=== PATIENT | male | born 1990 | race African-American/Black ===

== ENCOUNTER 2025-07-14 00:51 | Observation (INO) | payer OTHER, SELFPAY ==
[2025-07-13 22:02] VITALS: BP 145/91; BMI 20.5
--- NOTE | 2025-07-13 22:25 | ED.GENMED ---
History of Present Illness
<Leigha Hutton PA-C - Last Filed: 07/14/25 01:12>
General
Chief Complaint: Chest Pain
Source: patient
Exam Limitations: none
Time Seen by Provider: 07/13/25 22:24
History of Present Illness
History of Present Illness:
35yoM with a prior history of substance use presenting from [facility] for evaluation of chest pain. Symptoms began around 5:30 PM after he ate dinner. He had a cheeseburger for dinner. He reports a sharp, throbbing pain in his left
chest which radiates to the back. Pain is worse with palpation and breathing. He denies any trauma to the chest. He is otherwise asymptomatic and denies any dizziness, syncope, shortness of breath, cough, fever, vomiting, abdominal pain.
Patient received aspirin prehospital. He saw a product safety associate as a teenager for palpitations and had a Holter monitor which was reportedly normal.
Phy Exam
<Leigha Hutton PA-C - Last Filed: 07/14/25 01:12>
General Physical Exam
General Presentation: well appearing and no apparent distress
General Skin: warm and dry
General Habitus: normal
General Mental: alert
ENT Exam
ENT Exam: normocephalic
Cardiovascular Exam
Cardiovascular Exam: regular rate/rhythm, no edema, no murmur and normal peripheral pulses (2+ radial pulses bilaterally)
Pulmonary Exam
Pulmonary Exam: lungs clear, no respiratory distress, no rales, no crackles, no rhonchi, no wheezing and other (+Tenderness to L anterior chest wall. No crepitus or skin changes.)
Neurological Exam
Neurological Exam: alert
[place] Coma Scale
Eye Opening: Spontaneous
Verbal Response: Oriented
Motor Response: Obeys Commands
GCS Total Score: 15
Skin Exam
Skin Exam: normal color and warm/dry
Psychiatric Exam
Psychiatric Exam: normal mood/affect
<Judith Magaña DO - Last Filed: 07/14/25 01:59>
[place] Coma Scale
GCS Total Score: 15
Scores
<Leigha Hutton PA-C - Last Filed: 07/14/25 01:12>
Heart Score for Chest Pain Patients
STEMI patient?: No
History: Slightly or Non-Suspicious
ECG: Nonspecific Repolarization
Age: </= 45 years
Risk Factors: No Risk Factors
Troponin: >1 - <3 x Normal Limit
Heart Score for Chest Pain Patients: 2
Heart Score Risk: 2.5% MACE over next 6 weeks
<Judith Magaña DO - Last Filed: 07/14/25 01:59>
Heart Score for Chest Pain Patients
Heart Score for Chest Pain Patients: 2
Heart Score Risk: 2.5% MACE over next 6 weeks
Course
<Leigha Hutton PA-C - Last Filed: 07/14/25 01:12>
Orders/Labs/Results
Orders:
Orders
07/13/25 22:02
Electrocardiogram (*1) Urgent
Reason for Study: Chest Pain
Cardiac Monitoring- Treatment ONCE
EKG- Treatment ONCE
07/13/25 22:23
Complete Blood Count/With Diff Urgent
Erythrocyte Sed Rate Urgent
Comment: ADD ON
07/13/25 22:33
Cardiac Monitoring- Treatment ONCE
CR Chest - 2 Views Urgent
Comment:
Reason For Exam: CP
07/13/25 22:47
C-Reactive Protein Urgent
Comment: ADD ON
Comprehensive Metabolic Panel Urgent
D-Dimer Urgent
Troponin I Urgent
07/14/25 00:04
Add On- LAB Urgent
Tests Added?: ESR, CRP
07/14/25 00:46
Admit/Transfer Patient As Directed
Co-Sign Provider:
Level of Care: Observation services
Assign to:: Telemetry
Physician / Group: Darrel
Diagnosis: Pericarditis
Reason for Telemetry: Chest Pain syndromes
Date to Stop Telemetry: 07/16/25
Time to Stop Telemetry: 11:00
Code Status As Directed
Resuscitation Status: Full Code
PRN Pain Medication Management As Directed
May give lesser potent ordered pain med per pt: Yes
preference::
Protocol:: Medication orders for pain may be administered in a
manner that supports deferring to patient preference
when the pt is:
- Requesting an ordered lesser potent pain medication.
Least to most potent pain medications are defined
as: acetaminophen < NSAID < tramadol < opioids
(morphine, oxycodone, hydromorphone).
- Requesting a lesser dose of the same medication IF
ORDERED.
- Requesting a less intrusive route of administration
if both routes are prescribed by the provider (PO <
IV).
07/14/25 01:06
Troponin I Q6H
07/14/25 01:43
Acetaminophen [Tylenol] 650 mg PO Q4HPRN PRN
07/14/25 01:43
Echo 2D MMode Doppler [Echo 2D MMode Color/Doppler] Routine
Reason for Study: Pericarditis
CARDIOLOGY CONSULT Routine
Consulting Provider: Jhon Mosley
Was physician already notified: No
Reason for consult: Pericarditis
Consult Notification Routine
Specialty to Notify: Cardiology
Activity As Directed
Activity Level: Ambulate
With Assistance
EKG with chest pain [ECG as needed] As Directed
ECG as needed for:: Chest Pain
I/O [Intake/ Output] As Directed
Frequency: Per unit guidelines
Pneumatic Compression Sleeves As Directed
Type: Knee high
Vital Signs As Directed
Frequency: Per unit guidelines
Oxygen Therapy [O2 Therapy] [RESP] Routine
Titrate/Wean O2 to maintain O2 sat greater than (%): 94
DX Deep Vein Thrombosis Video Routine
07/14/25 01:45
Albuterol Nebs [Ventolin Nebules] 2.5 mg INH R QID SOB
07/14/25 06:00
EKG [Electrocardiogram (*1)] IN AM
Reason for Study: Chest Pain
Regular
At Your Request: Full Participation
Does patient need a safe tray?: No
Basic Metabolic Panel IN AM
Cardiovascular Evaluation IN AM
Complete Blood Count/No Diff IN AM
07/14/25 07:00
Troponin I Q6H
07/14/25 08:00
Amoxicillin [Amoxil] 500 mg PO TID
Buprenorphine [Subutex] 8 mg SL DAILY
Ibuprofen [Motrin] 800 mg PO TID
Pantoprazole [Protonix] 40 mg PO BID
07/14/25 13:00
Troponin I Q6H
07/16/25 11:00
DC Protocol for Telemetry ONCE
Abnormal Lab Results
07/13/25 07/13/25
22:23 22:47
WBC 4.6 L 10^3/uL
(4.8-10.8)
RBC 4.11 L 10^6/uL
(4.70-6.10)
MCV 94.9 H fL
(80.0-94.0)
MCH 32.6 H pg
(27.0-31.0)
RDW 10.9 L %
(11.5-14.5)
MPV 11.1 H fL
(7.4-10.4)
Troponin I 0.036 H* ng/ml
07/13/25 22:23
07/13/25 22:47
Vital Signs
Initial and Last Documented VS:
Initial Vital Signs
Temp Pulse Resp BP Pulse Ox
98.8 F 69 14 145/91 100
07/13/25 22:02 07/13/25 22:02 07/13/25 22:02 07/13/25 22:02 07/13/25 22:02
Last Documented Vital Signs
Temp Pulse Resp BP Pulse Ox
98.8 F 66 20 108/76 100
07/13/25 22:02 07/14/25 00:37 07/14/25 00:37 07/14/25 00:00 07/14/25 00:30
<Judith Magaña, DO - Last Filed: 07/14/25 01:59>
Orders/Labs/Results
Orders:
Orders
07/13/25 22:02
Electrocardiogram (*1) Urgent
Reason for Study: Chest Pain
Cardiac Monitoring- Treatment ONCE
EKG- Treatment ONCE
07/13/25 22:23
Complete Blood Count/With Diff Urgent
Erythrocyte Sed Rate Urgent
Comment: ADD ON
07/13/25 22:33
Cardiac Monitoring- Treatment ONCE
CR Chest - 2 Views Urgent
Comment:
Reason For Exam: CP
07/13/25 22:47
C-Reactive Protein Urgent
Comment: ADD ON
Comprehensive Metabolic Panel Urgent
D-Dimer Urgent
Troponin I Urgent
07/14/25 00:04
Add On- LAB Urgent
Tests Added?: ESR, CRP
07/14/25 00:46
Admit/Transfer Patient As Directed
Co-Sign Provider:
Level of Care: Observation services
Assign to:: Telemetry
Physician / Group: Darrel
Diagnosis: Pericarditis
Reason for Telemetry: Chest Pain syndromes
Date to Stop Telemetry: 07/16/25
Time to Stop Telemetry: 11:00
Code Status As Directed
Resuscitation Status: Full Code
PRN Pain Medication Management As Directed
May give lesser potent ordered pain med per pt: Yes
preference::
Protocol:: Medication orders for pain may be administered in a
manner that supports deferring to patient preference
when the pt is:
- Requesting an ordered lesser potent pain medication.
Least to most potent pain medications are defined
as: acetaminophen < NSAID < tramadol < opioids
(morphine, oxycodone, hydromorphone).
- Requesting a lesser dose of the same medication IF
ORDERED.
- Requesting a less intrusive route of administration
if both routes are prescribed by the provider (PO <
IV).
07/14/25 01:06
Troponin I Q6H
07/14/25 01:43
Acetaminophen [Tylenol] 650 mg PO Q4HPRN PRN
07/14/25 01:43
Echo 2D MMode Doppler [Echo 2D MMode Color/Doppler] Routine
Reason for Study: Pericarditis
CARDIOLOGY CONSULT Routine
Consulting Provider: Jhon Mosley
Was physician already notified: No
Reason for consult: Pericarditis
Consult Notification Routine
Specialty to Notify: Cardiology
Activity As Directed
Activity Level: Ambulate
With Assistance
EKG with chest pain [ECG as needed] As Directed
ECG as needed for:: Chest Pain
I/O [Intake/ Output] As Directed
Frequency: Per unit guidelines
Pneumatic Compression Sleeves As Directed
Type: Knee high
Vital Signs As Directed
Frequency: Per unit guidelines
Oxygen Therapy [O2 Therapy] [RESP] Routine
Titrate/Wean O2 to maintain O2 sat greater than (%): 94
DX Deep Vein Thrombosis Video Routine
07/14/25 01:45
Albuterol Nebs [Ventolin Nebules] 2.5 mg INH R QID SOB
07/14/25 06:00
EKG [Electrocardiogram (*1)] IN AM
Reason for Study: Chest Pain
Regular
At Your Request: Full Participation
Does patient need a safe tray?: No
Basic Metabolic Panel IN AM
Cardiovascular Evaluation IN AM
Complete Blood Count/No Diff IN AM
07/14/25 07:00
Troponin I Q6H
07/14/25 08:00
Amoxicillin [Amoxil] 500 mg PO TID
Buprenorphine [Subutex] 8 mg SL DAILY
Ibuprofen [Motrin] 800 mg PO TID
Pantoprazole [Protonix] 40 mg PO BID
07/14/25 13:00
Troponin I Q6H
07/16/25 11:00
DC Protocol for Telemetry ONCE
Abnormal Lab Results
07/13/25 07/13/25
22:23 22:47
WBC 4.6 L 10^3/uL
(4.8-10.8)
RBC 4.11 L 10^6/uL
(4.70-6.10)
MCV 94.9 H fL
(80.0-94.0)
MCH 32.6 H pg
(27.0-31.0)
RDW 10.9 L %
(11.5-14.5)
MPV 11.1 H fL
(7.4-10.4)
Troponin I 0.036 H* ng/ml
07/13/25 22:23
07/13/25 22:47
Vital Signs
Initial and Last Documented VS:
Initial Vital Signs
Temp Pulse Resp BP Pulse Ox
98.8 F 69 14 145/91 100
07/13/25 22:02 07/13/25 22:02 07/13/25 22:02 07/13/25 22:02 07/13/25 22:02
Last Documented Vital Signs
Temp Pulse Resp BP Pulse Ox
98.8 F 66 20 108/76 100
07/13/25 22:02 07/14/25 00:37 07/14/25 00:37 07/14/25 00:00 07/14/25 00:30
<Leigha Hutton PA-C - Last Filed: 07/14/25 01:12>
MDM/Problems Addressed
Differential Diagnosis Includes:
35yoM presenting with L chest pain that began this evening. Pleuritic in nature. VSS. He is well appearing in no distress. There is reproducible chest wall tenderness on exam. Differential diagnosis includes but is not limited to: Musculoskeletal,
pneumonia, pleurisy, pericarditis, PE, less likely ACS, doubt pneumothorax given normal breath sounds and oxygen saturation of 100%
Initial ED plan: Check cardiac labs, D-dimer, EKG, and chest x-ray.
<Leigha Hutton PA-C - Last Filed: 07/14/25 01:12>
*Pulse Oximetry
SaO2: 100
Oxygen Mode of Delivery: Room air
Patient hypoxic: no
*EKG
Interpreted by ED Provider?: Yes
EKG Intrepretation Date: 07/13/25
Heart Rate: 61
Rate: normal
Rhythm: sinus
[place]: normal axis
Interval: normal interval
QRS Pattern: normal QRS
Ischemia: other (Benign early repolarization)
*Critical Care Note
Total Time (30-74mins, 75-104mins- exclusive of procedures): Not Applicable
<Leigha Hutton PA-C - Last Filed: 07/14/25 01:12>
Update Note
Update Note:
Troponin elevated at 0.036. EKG shows normal sinus rhythm with findings suggestive of benign early repolarization. D-dimer normal making PE very unlikely. Consider possible pericarditis. ESR/CRP added and patient admitted for further evaluation.
ED Attending Note
<Leigha Hutton PA-C - Last Filed: 07/14/25 01:12>
-
Portions of this chart may have been created with voice recognition software.� Occasional wrong word or��sound alike� substitutions may have occurred due to the inherent limitations of voice recognition software.
<Judith Magaña DO - Last Filed: 07/14/25 01:59>
ED Attending Note
Patient seen and examined by attending physician: Yes
I performed a history and physical exam of patient and discussed management with resident, I reviewed resident's note and agree with documented findings and plan of care.: Yes
ED Attending Note:
35-year-old gentleman, currently incarcerated at [facility] since the eighth of this month. He has no significant past medical history save for substance abuse. Currently maintained on Suboxone at the present.
Presents with acute left parasternal chest pain that began shortly after dinner. Left sided chest pain is worse with deep breath, worse with direct palpation. No other associated symptoms. No cough or shortness of breath. He has not had a fever
nor chills.
He does note remote history of similar but less severe pain in the past.
35-year-old gentleman, mildly drowsy, otherwise appears in no acute distress. Oriented x 3. Accompanied by 2 senior care guards.
Heart is regular rate and rhythm in the 60s, no murmur no rub. Moderate reproducible left parasternal tenderness to palpation. No crepitus.
Lungs are clear to auscultation. No respiratory distress.
Abdomen is soft with mild tenderness superior epigastric region.
EKG shows normal sinus rhythm at 60, questionable mild early repolarization anterolaterally. No old EKGs to compare.
Labs are remarkable for mildly elevated troponin 0.036. D-dimer is negative. CBC shows mild leukopenia with count of 4.6. Normal H&H. Normal platelet count. He remains afebrile.
Chest x-ray shows clear lung yanes, questionable mild cardiomegaly.
Concern for ACS, pericarditis, GERD. Endocarditis is a consideration with history of substance abuse but unlikely.
Will continue to trend troponin and EKG.
Due to chest pain, elevated troponin patient will require acute hospitalization for further workup.
Discharge Plan
Departure
Patient Disposition: Admit
Date of Disposition: 07/14/25
Time of Disposition: 00:09
Presentation/result/management discussed w/ accepting MD/DO: Hospitalist
Discharge Problem:
Chest pain, Elevated troponin
Interventions
Interventions:
*Risk Screen - Suicide Last Done: 07/13/25 22:02
*General Assessment Last Done: 07/13/25 22:02
*Neglect/Abuse Screening Last Done: 07/13/25 22:02
*ED- Fall Risk Assessment Last Done: 07/13/25 22:02
*ED COVID-19 Vaccine History Last Done: 07/13/25 22:02
*ED Influenza Vaccine History Last Done: 07/13/25 22:02
ED- Cardiac Assessment Last Done: 07/13/25 22:15
[2025-07-13 22:29] LABS: Hematocrit 39.0 % (39.0-52.0); Hemoglobin 13.4 g/dL (13.0-18.0); Mean Corp Hgb Conc. 34.4 g/dL (33.0-37.0); Mean Corpuscular Volume 94.9 fL (80.0-94.0); Nucleated Red Blood Cells % 0 % (-); Platelet Count 145 10^3/uL (130-400); Red Cell Dist. Width 10.9 % (11.5-14.5)
[2025-07-13 23:00] VITALS: BP 119/74
[2025-07-13 23:18] LABS: ALT (SGPT) 14 U/L (0-50); AST (SGOT) 26 U/L (17-59); Albumin 4.4 g/dl (3.5-5.0); Alkaline Phosphatase 60 U/L (38-126); Blood Urea Nitrogen 13 mg/dl (9-20); Calcium 9.4 mg/dl (8.4-10.2); Carbon Dioxide 28 mmol/L (22-30); Chloride 104 mmol/L (98-107); Estimated Creatinine Clearance > 125 ml/min; Glucose 85 mg/dl (70-99); Potassium 4.0 mmol/L (3.5-5.1); Sodium 135 mmol/L (135-145); Total Protein 7.5 g/dl (6.3-8.2); eGFR > 60.00
[2025-07-13 23:22] LABS: Troponin I 0.036 ng/ml
[2025-07-13 23:32] LABS: D-Dimer < 0.27 ug/mlFEU (0.00-0.50)
[2025-07-14] VITALS (19 sets, daily range): BP systolic 105–127; BP diastolic 58–99
--- NOTE | 2025-07-14 00:49 | HPS.HSE ---
Family Physician
-
Family Physician: [facility]
Chief Complaint
-
Chest Pain
History of Present Illness
Patient is a 35y M with PMH significant for asthma who presents to ED from [facility] complaining of chest pain. Patient states that he started with left-sided sharp chest pain shortly after dinner this evening. Pain was associated with shortness of
breath and was worse with deep breathing, coughing and certain movements. Patient reports prior h/o similar symptoms. Evaluations in the past have reportedly been unremarkable.
Patient presented to the ED for further evaluation. At the time of my examination his pain is improved but not resolved.
Patient is currently on amoxicillin for dental abscess with plans for definitive dental treatment as an outpatient.
Medical History
Past Medical History
Past Medical History: Reports Other
Additional Past Medical History:
Asthma
Dental Abscess
Opioid Use Disorder
Past Surgical History: Reports Other
Additional Past Surgical History:
Right Femur ORIF
Skin Graft
Finger Amputation
Left Scalp Surgery
Social History
Tobacco: Former Smoker
Alcohol: Occasional
Drug: Other (History of opioid / pill use Rx and illicitly. Marijuana. Denies other substance abuse / IVDA / etc.)
Living: [facility]
Family History
Family History: Not pertinent
Allergies / Home Medications
Allergies reflects when Allergies were last updated in [facility].
Home Medications with original date entered in [facility]
Allergy/Medication List:
Allergies
Allergy/AdvReac Type Severity Reaction Status Date / Time
No Known Allergies Allergy Unverified 07/13/25 22:01
Home Medications
albuterol sulfate 2.5 mg/3 mL (0.083 %) solution for nebulization 2.5 mg inhalation QID PRN SOB 07/14/25
amoxicillin 500 mg tablet 500 mg PO TID 07/14/25
buprenorphine HCl 8 mg sublingual tablet 8 mg sublingual DAILY 07/14/25
docusate sodium 100 mg tablet 100 mg PO BID PRN constipation 07/14/25
ibuprofen 400 mg tablet 400 mg PO BID PRN Pain 07/14/25
Review of Systems
-
History Source: Patient
A 12 point ROS was completed and negative except as noted: Yes
Constitutional: Reports Fatigue; Denies Fever or Chills
Respiratory: Reports Trouble Breathing; Denies Cough
Cardiac: Reports Chest Pain
Abdomen/GI: Reports Abdominal Pain; Denies Nausea, Vomiting or Diarrhea
: Denies Dysuria or Flank Pain
Musculoskeletal: Denies Joint Pain or Edema
Neurological: Denies Dizzy or Headache
Physical Exam
Vital Signs
Vital Signs
Temp Pulse Resp BP Pulse Ox
98.8 F 66 20 108/76 100
07/13/25 22:02 07/14/25 00:37 07/14/25 00:37 07/14/25 00:00 07/14/25 00:30
Physical Exam
General: Other (35y M in no acute distress.)
HEENT: Moist mucous membranes and PERRLA
Respiratory: Clear; No Wheezes, Rales or Rhonchi
Cardiac: S1/S2 and Regular Rhythm; No Murmur
GI: Soft, Non Distended, Normal Bowel Sounds and Other (Mild epigastric tenderness.)
Musculoskeletal: No Clubbing, No Cyanosis and No Edema
Neuro: AO x 3
Laboratory Results
-
07/13/25 22:23
07/13/25 22:47
Laboratory Results
Total Bilirubin 0.6 mg/dl (0.2-1.3) 07/13/25 22:47
AST 26 U/L (17-59) 07/13/25 22:47
ALT 14 U/L (0-50) 07/13/25 22:47
Alkaline Phosphatase 60 U/L (38-126) 07/13/25 22:47
Troponin I 0.036 ng/ml H* 07/13/25 22:47
Impression/Plan
-
A/P: Patient is a 35y M with PMH significant for asthma and opioid use disorder who presents to ED complaining of left-sided chest pain.
Chest Pain
Pericarditis
- Observe overnight for further evaluation and treatment.
- EKG with subtle changes c/w pericarditis. Troponin mildly elevated. Pleuritic pain syndrome.
- Ibuprofen in standing doses.
- Echo in AM.
- Cardiology evaluation for additional recommendations.
- Follow troponin to peak.
Dental Abscess
- Continue amoxicillin for now. Follow-up with dental as an outpatient as scheduled.
Asthma without Acute Exacerbation
- Continue PRN albuterol.
Opioid Use Disorder
- Stable. Continue buprenorphine.
- No role for acute opioids in treatment of pericarditis. NSAIDs as noted above.
GI Prophylaxis
- PPI BID for now while on NSAIDs and amoxicillin.
DVT Prophylaxis: SCDs
Code Status: Full
[2025-07-14 00:57] LABS: C-Reactive Protein < 5.00 mg/L (0.0-10.00)
[2025-07-14 01:51] LABS: Troponin I 0.045 ng/ml
[2025-07-14] MEDS: VENTOLIN NEBULES 2.5 MG INH ×5 (01:59→19:17)
[2025-07-14 06:38] LABS: Hematocrit 40.5 % (39.0-52.0); Hemoglobin 13.5 g/dL (13.0-18.0); Mean Corp Hgb Conc. 33.3 g/dL (33.0-37.0); Mean Corpuscular Volume 98.1 fL (80.0-94.0); Platelet Count 148 10^3/uL (130-400); Red Cell Dist. Width 11.0 % (11.5-14.5)
[2025-07-14 06:58] LABS: Blood Urea Nitrogen 14 mg/dl (9-20); Calcium 9.1 mg/dl (8.4-10.2); Carbon Dioxide 28 mmol/L (22-30); Chloride 107 mmol/L (98-107); Estimated Creatinine Clearance > 125 ml/min; Glucose 86 mg/dl (70-99); HDL Cholesterol 81 mg/dl; LDL Cholesterol, Calculated 73 mg/dl; Potassium 4.1 mmol/L (3.5-5.1); Sodium 135 mmol/L (135-145); Very Low Density Lipoprotein 11 mg/dl (0-30); eGFR > 60.00
[2025-07-14 07:02] LABS: Troponin I 0.043 ng/ml
--- NOTE | 2025-07-14 08:46 | CON.CAR ---
Addendum entered and electronically signed by Vaibhav Beltran MD 07/14/25 10:09:
I saw and evaluated the patient, and I provided the substantive portion of the medical decision making.
I reviewed and agree with the note by Ms Self and it accurately reflects our care.
I personally performed the medical decision making of the this encounter and my assessment and plan is below:
Given his clinical history and presenting symptoms, with EKG findings of possible pericarditis and mildly elevated troponin this is most likely consistent with myopericarditis.
We will obtain cardiac MRI for further evaluation.
I suspect his symptoms will continue to improve with colchicine and ibuprofen.
Ibuprofen taper with 800 mg ibuprofen 3 times daily for 2 weeks, then 600 mg 3 times daily for 2 weeks, 400 mg 3 times daily for 2 weeks, and finally 200 mg 3 times daily for 2 weeks.
Colchicine 0.6 mg twice daily for at least 3 months.
PPI for GI protection given high-dose NSAID
Original Note:
Consultation
Consultation Request
Date/Time Consultation Requested: 07/14/2025 01:45
Date/Time Consultation Performed: 07/14/2025 08:45
Requesting Provider: Dr. Rojo
Performing Provider: VITALY Cordova for Dr. Beltran
Reason for Consultation: Chest pain
Medical History
-
Chief Complaint: Chest pain
History of Present Illness:
Fritz Sullivan is a 35-year-old male with asthma and prior opioid abuse who presents from [facility] with a chief complaint of chest pain. Left-sided anterior stabbing chest pain started after dinner last evening. Initial troponin 0.036, peak 0.045,
appears flat. CRP <5. ESR 2. EKG with MA depression consistent with pericarditis. He was started on ibuprofen. He is currently chest pain-free.
Past Medical History
Past Medical History: Asthma and Psychiatric (Opioid abuse)
Social History
Drug: Former User
Living: Senior Living
Employment: Not Employed
Family History
Family History: Reviewed & Not Pertinent
Allergies / Home Medications
Allergy/AdvReac Type Severity Reaction Status Date / Time
No Known Allergies Allergy Unverified 07/13/25 22:01
�Medication �Instructions �Recorded �Confirmed �Type
albuterol sulfate 2.5 mg/3 mL 2.5 mg inhalation R BIDPRN PRN SOB 07/14/25 07/14/25 History
(0.083 %) solution for nebulization
amoxicillin 500 mg tablet 500 mg PO TID 07/14/25 07/14/25 History
buprenorphine HCl 8 mg sublingual 8 mg sublingual DAILY 07/14/25 07/14/25 History
tablet
docusate sodium 100 mg tablet 100 mg PO BIDPRN PRN constipation 07/14/25 07/14/25 History
ibuprofen 400 mg tablet 400 mg PO BIDPRN PRN mild pain 07/14/25 07/14/25 History
Review of Systems
-
History Source: Patient
All other systems: Negative unless noted
Constitutional: Fatigue
EENT: No Symptoms
Respiratory: No Symptoms
Cardiac: No Symptoms
Abdomen/GI: No Symptoms
: No Symptoms
Musculoskeletal: No Symptoms
Skin: No Symptoms
Neurological: No Symptoms
Endocrine: No Symptoms
Hematologic/Lymphatic: No Symptoms
Physical Exam
Vital Signs
Temp Pulse Resp BP Pulse Ox
97.7 F 59 14 115/73 99
07/14/25 06:28 07/14/25 08:08 07/14/25 08:08 07/14/25 06:00 07/14/25 08:08
Lab Results
07/14/25 06:22
07/14/25 06:22
Troponin I 0.043 ng/ml H* 07/14/25 06:22
Physical Exam
General: Well Developed, Well Nourished, No Apparent Distress and Comfortable
HEENT: Normocephalic, Anicteric and Moist Mucous Membranes
Respiratory: Clear and Non Labored Respirations
Cardiac: S1/S2 and Regular Rhythm
Breast: Deferred by me
GI: Soft, Non Tender, Non Distended and Normal Bowel Sounds
Rectal: Deferred by Provider
Genito-urinary: No Costovertebral Tender
Musculoskeletal: No Clubbing and No Cyanosis
Skin: Warm and Dry
Neuro: AO x 3
Hematologic/Lymphatic: No Lymphadenopathy
Psych: Calm
Impression / Plan
-
I/P: 35M with asthma and prior opioid abuse who presents from [facility] with a chief complaint of chest pain.
Chest pain, in the setting of myopericarditis
- EKG appears consistent with pericarditis and he has an abnormal troponin
- ESR 2, CRP < 5
- No recent viral illness
- Echocardiogram today
- Cardiac MRI today
Abnormal troponin, nonischemic myocardial injury in the setting of myopericarditis
- Troponins: 0.036, 0.045, 0.043
- Currently chest pain-free
Dental infection, afebrile without leukocytosis, on amoxicillin, per primary service
Opioid abuse, on buprenorphine
[2025-07-14] MEDS: AMOXIL 500 MG PO ×3 (08:59→21:09)
[2025-07-14] MEDS: PROTONIX 40 MG PO ×2 (08:59→21:08)
[2025-07-14] MEDS: MOTRIN 800 MG PO ×3 (08:59→21:08)
[2025-07-14] MEDS: SUBUTEX 8 MG SL (09:00)
[2025-07-14] MEDS: COLCHICINE 0.6 MG PO ×2 (10:38→21:08)
[2025-07-14 13:38] LABS: Troponin I 0.031 ng/ml
--- NOTE | 2025-07-14 14:12 | W.PN.HOSP.TC ---
Today's Communication/Plan
-
Assessment / Plan
Assessment / Plan
General: No Apparent Distress, Comfortable, and long [place] custody
HEENT: NormoCephalic, Moist mucous membranes, Atraumatic
Respiratory: Clear and Non Labored Respirations
Cardiac: S1/S2 and Regular Rhythm; No Rub or Gallop
GI: Soft, Non Tender, Non Distended and Normal Bowel Sounds
Musculoskeletal: No Edema, no deformity
Skin: Warm and dry
: NO Blackwell
Neuro: Awake, Alert, Nonfocal/grossly intact
Psych: Calm and cooperative
Mr. Sullivan is a 35-year-old male with a medical history of asthma, dental abscess (currently on amoxicillin), and opioid use disorder who presented from [facility] with sharp left-sided chest pain shortness of breath.
Chest pain:
- Suspect pericarditis/myocarditis
- Cardiology following, cardiac MRI pending
- Continue tapering ibuprofen (800 mg 3 times a day x 2 weeks, taper down by 200 mg every 2 weeks until off), colchicine 0.6 mg twice daily for at least 3 months
- PPI while on high-dose steroids
Dental abscess:
- Continue amoxicillin
- Outpatient dental follow-up
Opioid use disorder:
- Continue buprenorphine
DVT prophylaxis: SCDs
CODE STATUS: Full code
Anticipated Discharge: 24 - 48 hours
Subjective/Interval History
-
Date of Service: July 14, 2025
Patient was seen and examined at bedside this morning. No acute distress, chest pain improved.
Objective Data
-
Labs:
Laboratory Results
07/14/25
06:22
WBC 5.1
Hgb 13.5
Hct 40.5
Plt Count 148
Sodium 135
Potassium 4.1
Chloride 107
Carbon Dioxide 28
BUN 14
Creatinine 0.7
Glucose 86
Calcium 9.1
Vital Signs:
Vital Signs
Temp Pulse Resp BP Pulse Ox
97.7 F 61 14 115/74 99
07/14/25 06:28 07/14/25 11:44 07/14/25 11:44 07/14/25 11:00 07/14/25 11:44
Review of Systems
-
History Source: Patient
All other systems: Reviewed and negative
Physical Exam
-
General: No Apparent Distress
--- NOTE | 2025-07-14 16:44 | EDCM ---
CM reviewed chart and met with pt bedside in ED. Pt from [facility].
Independent in ADLs, personal care and ambulation.
OBS form verbally reviewed
No hx VN or SNF
PCP: [facility]
Ph[facility]
Anticipate discharge back to [facility], CM will continue to follow.
--- NOTE | 2025-07-14 18:08 | PTCARENOTE ---
Received pt. from ED holds. PT. AAOx3, oriented to room and unit. Guards present at bedside. Nursing shift assessment complete. This nurse clarified pt. medication questions. Will continue with ongoing plan of care.
[2025-07-14] MEDS: TYLENOL 650 MG PO (23:22)
--- NOTE | 2025-07-15 02:42 | DOWNTIME ---
There was a [employer] Downtime on 07/15/2025 from 0100 to 07/15/2025 at 0215. Downtime documentation of patient's care, including medication administrations, has been reconciled in the electronic record per guidelines. Refer to the
patient's paper chart under the miscellaneous tab to see printed paper medication records and downtime forms.
[2025-07-15 03:10] VITALS: BP 123/66
[2025-07-15 07:00] VITALS: BP 114/72
[2025-07-15] MEDS: VENTOLIN NEBULES 2.5 MG INH (07:35)
[2025-07-15] MEDS: COLCHICINE 0.6 MG PO (08:11)
[2025-07-15] MEDS: MOTRIN 800 MG PO ×3 (08:11→20:59)
[2025-07-15] MEDS: PROTONIX 40 MG PO ×2 (08:11→20:59)
[2025-07-15] MEDS: AMOXIL 500 MG PO ×3 (08:11→20:59)
[2025-07-15] MEDS: SUBUTEX 8 MG SL (08:11)
[2025-07-15 10:33] LABS: Hematocrit 40.4 % (39.0-52.0); Hemoglobin 13.6 g/dL (13.0-18.0); Mean Corp Hgb Conc. 33.7 g/dL (33.0-37.0); Mean Corpuscular Volume 96.7 fL (80.0-94.0); Platelet Count 137 10^3/uL (130-400); Red Cell Dist. Width 11.1 % (11.5-14.5)
[2025-07-15 11:00] VITALS: BP 118/74
[2025-07-15 11:07] LABS: Blood Urea Nitrogen 15 mg/dl (9-20); Calcium 8.8 mg/dl (8.4-10.2); Carbon Dioxide 30 mmol/L (22-30); Chloride 105 mmol/L (98-107); Estimated Creatinine Clearance 120 ml/min; Glucose 91 mg/dl (70-99); Potassium 4.2 mmol/L (3.5-5.1); Sodium 139 mmol/L (135-145); eGFR > 60.00
[2025-07-15 11:37] LABS: Nucleated Red Blood Cells % 0 % (-)
--- NOTE | 2025-07-15 12:18 | CM ---
Pt admitted from [facility], in custody of [facility] Guards.
with a chief complaint of left-sided stabbing chest pain that started last evening. Cardiology following for pericarditis.
Plan: CM will follow to coordinate discharge needs as identified through continued hospitalization.
[facility] Report: [phone]
[facility]
--- NOTE | 2025-07-15 13:03 | W.PN.HOSP.TC ---
Today's Communication/Plan
-
Assessment / Plan
Assessment / Plan
General: No Apparent Distress, Comfortable, in law enforcement custody
HEENT: NormoCephalic, Moist mucous membranes, Atraumatic
Respiratory: Clear and Non Labored Respirations
Cardiac: S1/S2 and Regular Rhythm; No Rub or Gallop
GI: Soft, Non Tender, Non Distended and Normal Bowel Sounds
Musculoskeletal: No Edema, no deformity
Skin: Warm and dry
: NO Blackwell
Neuro: Awake, Alert, Nonfocal/grossly intact
Psych: Calm and cooperative
Mr. Sullivan is a 35-year-old male with a medical history of asthma, dental abscess (currently on amoxicillin), and opioid use disorder who presented from [facility] with sharp left-sided chest pain shortness of breath.
Chest pain:
- Improving
- Suspect pericarditis/myocarditis
- Cardiology following, cardiac MRI pending
- Continue tapering ibuprofen (800 mg 3 times a day x 2 weeks, taper down by 200 mg every 2 weeks until off), colchicine 0.6 mg twice daily for at least 3 months
- PPI while on high-dose steroids
Dental abscess:
- Continue amoxicillin
- Outpatient dental follow-up
Opioid use disorder:
- Continue buprenorphine
DVT prophylaxis: SCDs
CODE STATUS: Full code
Anticipated Discharge: 24 - 48 hours
Subjective/Interval History
-
Date of Service: July 15, 2025
Patient was seen and examined at bedside this morning. Chest pain significantly improved. Awaiting cardiac MRI.
Objective Data
-
Labs:
Laboratory Results
07/15/25
09:54
WBC 4.5 L
Hgb 13.6
Hct 40.4
Plt Count 137
Sodium 139
Potassium 4.2
Chloride 105
Carbon Dioxide 30
BUN 15
Creatinine 0.8
Glucose 91
Calcium 8.8
Vital Signs:
Vital Signs
Temp Pulse Resp BP Pulse Ox
97.9 F 65 18 118/74 99
07/15/25 11:00 07/15/25 11:00 07/15/25 11:00 07/15/25 11:00 07/15/25 11:00
I&O
07/14/25 07/15/25 07/16/25
06:59 06:59 06:59
Intake Total 480 / 480
Balance 480 / 480
Review of Systems
-
History Source: Patient
All other systems: Reviewed and negative
Physical Exam
-
General: No Apparent Distress
--- NOTE | 2025-07-15 13:29 | W.PN.CD ---
Today's Communication / Plan
-
cMRI pending.
NSAID taper.
Colchicine 0.6 mg BID x 2 months.
Impression / Plan
-
Impression/Plan: 35M with asthma and prior opioid abuse who presents from [facility] with a chief complaint of chest pain, mild troponin elevation and EKG changes consistent with myopericarditis.
#Chest pain
-EKG appears consistent with pericarditis and he has an abnormal troponin, consistent with myopericarditis.
-ESR 2, CRP < 5.
-No recent viral illness.
-Echo is normal.
-cMRI pending.
-Continue empiric treatment with NSAID taper and colchicine 0.6 mg PO BID x 2 months.
#Abnormal troponin
-Nonischemic myocardial injury in the setting of presumed myopericarditis.
-Troponins: 0.036 --> 0.045 --> 0.043 --> 0.031.
-Currently chest pain-free.
#Dental infection
-Afebrile without leukocytosis
-Continue amoxicillin, per primary service.
#Opioid abuse
-Chronic, stable on buprenorphine.
Subjective/Interval History:
No acute events.
No subjective complaints.
cMRI pending.
DATA:
TTE, 07/14/2025:
SUMMARY
1. Normal biventricular size and function without regional wall motion abnormality.
2. LVEF is 65-70% by Kessler's biplane method of discs. Normal diastolic function.
3. No significant valvular disease. Normal estimated PASP at 22 mmHg.
4. No prior study available for comparison.
Physical Exam
Vital Signs/Labs
Vital Signs
Temp Pulse Resp BP Pulse Ox
36.6 C 65 18 118/74 99
07/15/25 11:00 07/15/25 11:00 07/15/25 11:00 07/15/25 11:00 07/15/25 11:00
07/14/25 07/15/25 07/16/25
11:59 11:59 11:59
Actual Weight 64.7 kg
07/15/25 09:54
07/15/25 09:54
Triglycerides 58 mg/dl (10-149) 07/14/25 06:22
LDL Cholesterol, Calc 73 mg/dl 07/14/25 06:22
VLDL Cholesterol, Calc 11 mg/dl (0-30) 07/14/25 06:22
HDL Cholesterol 81 mg/dl 07/14/25 06:22
LAB Results
07/13/25 07/13/25 07/14/25
22: 22:47 01:06
Troponin I Cancelled 0.036 H* 0.045 H*
07/14/25 07/14/25
06:22 12:50
Troponin I 0.043 H* 0.031 D
Physical Exam
Constitutional: No acute distress and Comfortable
EENT: Anicteric and Moist mucous membranes
Cardiovascular: Rhythm & rate is regular, Pedal edema is absent, JVD pressure is normal, S1S2 is normal and Murmur/rub/gallop absent
Respiratory: Respiratory effort normal, Lungs clear to auscul., Wheeze Absent, Crackles Absent and Rhonchi Absent
GI: Soft, Distention absent, Flat, Non tender and Normal bowel sounds
Neuro/Psych: AO x 3
Data Reviewed
-
Date of Service: July 15, 2025
Medical Decision Making: Reviewed Test Results, Independent Historian Assessment and Test Interpretation
EKG: Tracing Personally Visualized and interpreted and Report Reviewed by me
Echo: Report Reviewed by me
X-Ray/CT/US/MRI/NUC/PET: Image Personally Visualized and interpreted and Report Reviewed by me
Labs: Labs Reviewed by me
Old Records: Reviewed
[2025-07-15 15:00] VITALS: BP 129/69
[2025-07-15 19:00] VITALS: BP 128/78
[2025-07-15 23:00] VITALS: BP 133/83
[2025-07-16 03:00] VITALS: BP 103/67
[2025-07-16 07:00] VITALS: BP 122/66
[2025-07-16] MEDS: AMOXIL 500 MG PO ×3 (08:27→21:17)
[2025-07-16] MEDS: PROTONIX 40 MG PO ×2 (08:27→21:17)
[2025-07-16] MEDS: COLCHICINE 0.6 MG PO (08:27)
[2025-07-16] MEDS: MOTRIN 800 MG PO ×3 (08:27→21:17)
--- NOTE | 2025-07-16 08:42 | W.PN.CD ---
Addendum entered and electronically signed by Vaibhav Beltran MD 07/16/25 10:58:
I saw and evaluated the patient, and I provided the substantive portion of the medical decision making.
I reviewed and agree with the note by Ms Iniguez and it accurately reflects our care.
I personally performed the medical decision making of the this encounter and my assessment and plan is below:
Ibuprofen taper
Colchicine
cMRI
Original Note:
Today's Communication / Plan
-
-Continue colchicine, ibuprofen, and pantoprazole as outlined
-cardiac MRI pending
Impression / Plan
-
Impression/Plan: 35M with asthma and prior opioid abuse who presents from [facility] with a chief complaint of chest pain, mild troponin elevation and EKG changes consistent with myopericarditis.
#Chest pain
-EKG appears consistent with pericarditis and he has an abnormal troponin, consistent with myopericarditis.
-ESR 2, CRP < 5.
-No recent viral illness.
-Echo is normal (details below)
-cardiac MRI ordered and pending
-Ibuprofen taper with 800 mg ibuprofen 3 times daily for 2 weeks, then 600 mg 3 times daily for 2 weeks, 400 mg 3 times daily for 2 weeks, and finally 200 mg 3 times daily for 2 weeks. Colchicine 0.6 mg twice daily for 3 months. PPI for GI
protection given high-dose NSAID.
#Abnormal troponin
-Nonischemic myocardial injury in the setting of presumed myopericarditis.
-Troponins: 0.036 --> 0.045 --> 0.043 --> 0.031.
-echo as noted, MRI as avice
#Dental infection
-Afebrile without leukocytosis
-on amoxicillin- per primary service.
#Hx opioid abuse
-on buprenorphine.
Subjective/Interval History:
CP better with Ibuprofen
DATA:
TTE, 07/14/2025:
SUMMARY
1. Normal biventricular size and function without regional wall motion abnormality.
2. LVEF is 65-70% by Kessler's biplane method of discs. Normal diastolic function.
3. No significant valvular disease. Normal estimated PASP at 22 mmHg.
4. No prior study available for comparison.
Physical Exam
Vital Signs/Labs
Vital Signs
Temp Pulse Resp BP Pulse Ox
97.8 F 58 19 122/66 99
07/16/25 07:00 07/16/25 07:00 07/16/25 07:00 07/16/25 07:00 07/16/25 07:00
Triglycerides 58 mg/dl (10-149) 07/14/25 06:22
LDL Cholesterol, Calc 73 mg/dl 07/14/25 06:22
VLDL Cholesterol, Calc 11 mg/dl (0-30) 07/14/25 06:22
HDL Cholesterol 81 mg/dl 07/14/25 06:22
LAB Results
07/13/25 07/13/25 07/14/25
22:23 22:47 01:06
Troponin I Cancelled 0.036 H* 0.045 H*
07/14/25 07/14/25
06:22 12:50
Troponin I 0.043 H* 0.031 D
Physical Exam
Constitutional: No acute distress
EENT: Anicteric
Cardiovascular: Rhythm & rate is regular, Systolic murmur absent and Diastolic murmur absent
Respiratory: Respiratory effort normal and Lungs clear to auscul.
Neuro/Psych: AO x 3
Data Reviewed
-
Date of Service: July 16, 2025
EKG: Other (SR on telemery)
Echo: Other (echo as noted)
Labs: Labs Reviewed by me (BMP pending)
[2025-07-16] MEDS: SUBUTEX 8 MG SL (08:44)
[2025-07-16 08:59] LABS: Hematocrit 38.2 % (39.0-52.0); Hemoglobin 13.3 g/dL (13.0-18.0); Mean Corp Hgb Conc. 34.8 g/dL (33.0-37.0); Mean Corpuscular Volume 94.1 fL (80.0-94.0); Nucleated Red Blood Cells % 0 % (-); Platelet Count 133 10^3/uL (130-400); Red Cell Dist. Width 10.5 % (11.5-14.5)
[2025-07-16 09:36] LABS: Blood Urea Nitrogen 17 mg/dl (9-20); Calcium 8.6 mg/dl (8.4-10.2); Carbon Dioxide 28 mmol/L (22-30); Chloride 105 mmol/L (98-107); Estimated Creatinine Clearance > 125 ml/min; Glucose 88 mg/dl (70-99); Potassium 4.0 mmol/L (3.5-5.1); Sodium 134 mmol/L (135-145); eGFR > 60.00
[2025-07-16 10:59] VITALS: BP 127/67
--- NOTE | 2025-07-16 13:10 | W.PN.HOSP.TC ---
Today's Communication/Plan
-
Assessment / Plan
Assessment / Plan
General: No Apparent Distress, Comfortable, in law enforcement custody
HEENT: NormoCephalic, Moist mucous membranes, Atraumatic
Respiratory: Clear and Non Labored Respirations
Cardiac: S1/S2 and Regular Rhythm; No Rub or Gallop, mild left chest TTP
GI: Soft, Non Tender, Non Distended and Normal Bowel Sounds
Musculoskeletal: No Edema, no deformity
Skin: Warm and dry
: NO Blackwell
Neuro: Awake, Alert, Nonfocal/grossly intact
Psych: Calm and cooperative
Mr. Sullivan is a 35-year-old male with a medical history of asthma, dental abscess (currently on amoxicillin), and opioid use disorder who presented from [facility] with sharp left-sided chest pain shortness of breath.
Chest pain:
- Improving
- Suspect pericarditis/myocarditis
- Cardiology following, cardiac MRI planned for today
- Continue tapering ibuprofen (800 mg 3 times a day x 2 weeks, taper down by 200 mg every 2 weeks until off), colchicine 0.6 mg twice daily for at least 3 months
- PPI while on high-dose steroids
Dental abscess:
- Continue amoxicillin
- Outpatient dental follow-up
Opioid use disorder:
- Continue buprenorphine
DVT prophylaxis: SCDs
CODE STATUS: Full code
Anticipated Discharge: 24 - 48 hours
Subjective/Interval History
-
Date of Service: July 16, 2025
Patient was seen and examined at bedside this morning. Currently comfortable. Awaiting cardiac MRI.
Objective Data
-
Labs:
Laboratory Results
07/16/25
08:26
WBC 4.9
Hgb 13.3
Hct 38.2 L
Plt Count 133
Sodium 134 L
Potassium 4.0
Chloride 105
Carbon Dioxide 28
BUN 17
Creatinine 0.7
Glucose 88
Calcium 8.6
Vital Signs:
Vital Signs
Temp Pulse Resp BP Pulse Ox
97.8 F 63 19 127/67 97
07/16/25 10:59 07/16/25 10:59 07/16/25 10:59 07/16/25 10:59 07/16/25 10:59
I&O
07/15/25 07/16/25 07/17/25
06:59 06:59 06:59
Intake Total 480 / 480 1420 / 1420
Balance 480 / 480 1420 / 1420
Review of Systems
-
History Source: Patient
All other systems: Reviewed and negative
Cardiac: Reports Chest Pain (Mild chest discomfort)
Physical Exam
-
General: No Apparent Distress
[2025-07-16 14:54] VITALS: BP 105/77
[2025-07-16 19:35] VITALS: BP 94/68
[2025-07-16 23:30] VITALS: BP 134/71
[2025-07-17 03:35] VITALS: BP 114/76
[2025-07-17 08:09] VITALS: BP 98/73
[2025-07-17] MEDS: SUBUTEX 8 MG SL (08:17)
[2025-07-17] MEDS: AMOXIL 500 MG PO (08:17)
[2025-07-17] MEDS: MOTRIN 800 MG PO (08:17)
[2025-07-17] MEDS: PROTONIX 40 MG PO (08:17)
[2025-07-17] MEDS: COLCHICINE 0.6 MG PO (08:17)
--- NOTE | 2025-07-17 09:37 | W.PN.CD ---
Today's Communication / Plan
-
Pending MRI Read
Ibuprofen taper with 800 mg ibuprofen 3 times daily for 2 weeks, then 600 mg 3 times daily for 2 weeks, 400 mg 3 times daily for 2 weeks, and finally 200 mg 3 times daily for 2 weeks. Colchicine 0.6 mg daily for 3 months weight based PPI for GI
protection given high-dose NSAID.
Outpt stress test
We will sign off pending MRI read and arrange follow up.
OK to d/c from cards perspective
Impression / Plan
-
Impression/Plan: 35M with asthma and prior opioid abuse who presents from [facility] with a chief complaint of chest pain, mild troponin elevation and EKG changes consistent with myopericarditis.
#Chest pain
-EKG appears consistent with pericarditis and he has an abnormal troponin, consistent with myopericarditis.
-ESR 2, CRP < 5.
-No recent viral illness.
-Echo is normal (details below)
-cardiac MRI done awaiting read
-Ibuprofen taper with 800 mg ibuprofen 3 times daily for 2 weeks, then 600 mg 3 times daily for 2 weeks, 400 mg 3 times daily for 2 weeks, and finally 200 mg 3 times daily for 2 weeks. Colchicine 0.6 mg daily for 3 months weight based PPI for GI
protection given high-dose NSAID.
#Abnormal troponin
-Nonischemic myocardial injury in the setting of presumed myopericarditis.
-Troponins: 0.036 --> 0.045 --> 0.043 --> 0.031.
-echo as noted, MRI as avice
#Dental infection
-Afebrile without leukocytosis
-on amoxicillin- per primary service.
#Hx opioid abuse
-on buprenorphine.
Subjective/Interval History:
CP essentially resolved; complains of low back pain
DATA:
TTE, 07/14/2025:
SUMMARY
1. Normal biventricular size and function without regional wall motion abnormality.
2. LVEF is 65-70% by Kessler's biplane method of discs. Normal diastolic function.
3. No significant valvular disease. Normal estimated PASP at 22 mmHg.
4. No prior study available for comparison.
Physical Exam
Vital Signs/Labs
Vital Signs
Temp Pulse Resp BP Pulse Ox
97.9 F 76 18 98/73 100
07/17/25 08:09 07/17/25 08:09 07/17/25 08:09 07/17/25 08:09 07/17/25 08:09
07/16/25 08:26
07/16/25 08:26
Triglycerides 58 mg/dl (10-149) 07/14/25 06:22
LDL Cholesterol, Calc 73 mg/dl 07/14/25 06:22
VLDL Cholesterol, Calc 11 mg/dl (0-30) 07/14/25 06:22
HDL Cholesterol 81 mg/dl 07/14/25 06:22
LAB Results
07/14/25
12:50
Troponin I 0.031 D
Physical Exam
Constitutional: No acute distress and Comfortable
EENT: Anicteric
Cardiovascular: Rhythm & rate is regular and Pedal edema is absent
Respiratory: Respiratory effort normal and Lungs clear to auscul.
GI: Soft
Neuro/Psych: AO x 3
Data Reviewed
-
Date of Service: July 17, 2025
EKG: Tracing Personally Visualized and interpreted (sr)
Echo: Tracing Personally Visualized and interpreted
Labs: Labs Reviewed by me
[2025-07-17 11:19] VITALS: BP 137/66
--- NOTE | 2025-07-17 12:49 | W.DCSUMMARY ---
Discharge Summary
Discharge Data
Date of Admission: 07/14/25
Date of Discharge: 07/17/25
-
Pending Results: No
Hospital Course
Mr. Sullivan is a 35-year-old male with a medical history of asthma, dental abscess (currently on amoxicillin), and opioid use disorder who presented from [facility] with sharp left-sided chest pain shortness of breath. Troponins were mildly elevated.
Patient was evaluated by cardiology who felt presenting symptoms and EKG were suspicious for myocarditis/pericarditis. He was started on colchicine and long ibuprofen taper with improvement in his symptoms. Echocardiogram and cardiac MRI were
unremarkable. He was medically stable for discharge. Cardiology would like him to follow-up in the outpatient office for further evaluation and management.
General: No Apparent Distress, Comfortable, in law enforcement custody
HEENT: NormoCephalic, Moist mucous membranes, Atraumatic
Respiratory: Clear and Non Labored Respirations
Cardiac: S1/S2 and Regular Rhythm; No Rub or Gallop, mild left chest TTP
GI: Soft, Non Tender, Non Distended and Normal Bowel Sounds
Musculoskeletal: No Edema, no deformity
Skin: Warm and dry
: NO Blackwell
Neuro: Awake, Alert, Nonfocal/grossly intact
Psych: Calm and cooperative
Discharge Plan
-
Patient Disposition: Nursing Home
Discharge Diagnosis/Procedures: Chest pain
Activity Restrictions/Additional Instructions:
You were admitted for evaluation of chest pain. You were found to have elevated cardiac enzymes which is abnormal. Your EKG findings were suspicious for pericarditis/myocarditis. Echocardiogram and cardiac MRI findings were not consistent with
pericarditis or myocarditis. You were evaluated by cardiology who recommended continuing colchicine and ibuprofen which seems to be helping to improve your chest pain. Cardiology would like you to follow-up in their outpatient office for further
evaluation and management.
Medication regimens per cardiology:
- Continue tapering ibuprofen (800 mg 3 times a day x 2 weeks, taper down by 200 mg every 2 weeks until off)
- Colchicine 0.6 mg twice daily for at least 3 months
Referrals:
[facility] [Family Provider, General]
Prescriptions:
New
ibuprofen 800 mg Tablet
800 mg PO TID 90 Days Qty: 270 0RF
Rx Instructions:
taper ibuprofen:800 mg 3 times a day x 2 weeks, taper down by 200 mg every 2 weeks until off
colchicine 0.6 mg Tablet
0.6 mg PO DAILY 90 Days Qty: 90 0RF
pantoprazole 40 mg Tablet,Delayed Release (Dr/Ec)
40 mg PO BID 90 Days Qty: 180 0RF
Continued
albuterol sulfate 2.5 mg /3 mL (0.083 %) Solution For Nebulization
2.5 mg INHALATION R BIDPRN PRN (Reason: SOB)
amoxicillin 500 mg Tablet
500 mg PO TID
docusate sodium 100 mg Tablet
100 mg PO BIDPRN PRN (Reason: constipation)
buprenorphine HCl 8 mg Tablet, Sublingual
8 mg SUBLINGUAL DAILY
Discontinued
ibuprofen 400 mg Tablet
400 mg PO BIDPRN PRN (Reason: mild pain)
Discharge Orders:
Discharge Patient (As Directed); Ordered 07/17/25
Ordered By: Lai Wagner
Discharge Date and Time
Print Language: SWEDISH
--- NOTE | 2025-07-17 13:36 | CM ---
Pt discharged today to [facility] via their transport.
[facility] Report: [phone]
[facility]
[2025-07-17 15:35] VITALS: BP 130/60
== END 2025-07-17 15:36 ==
LOC: 3 WEST ACU 00:51
PROVIDERS: Emergency Medicine; Physician Assistant; ADMITTING PHYSICIAN Hospitalist; ATTENDING PHYSICIAN Internal Medicine; EMERGENCY PHYSICIAN Emergency Medicine; OTHER PHYSICIAN Internal Medicine Cardiovascular Disease
DX: R07.89 Other chest pain (principal); K04.7 Periapical abscess without sinus; Z79.899 Other long term (current) drug therapy; J45.909 Unspecified asthma, uncomplicated; F11.10 Opioid abuse, uncomplicated; I5A Non-ischemic myocardial injury (non-traumatic); Z87.891 Personal history of nicotine dependence; I31.9 Disease of pericardium, unspecified
CPT/HCPCS: 70030; 71046; 75561; 80048; 80053; 80061; 84484; 85025; 85027; 85379; 85652; 86140; 93005; 93306; 94640; 99285; 99406; A9585; G0378